=== PATIENT | female | born 1985 | race Caucasian/White ===

== ENCOUNTER 2017-05-15 18:24 | Emergency (ER) | payer BC ==
[~2017-05-15 18:24] MED LIST: VICODIN 5/1 TAB 5/50 PO
== END 2017-05-15 18:54 | disposition home or self-care (01) ==
LOC: SED 18:24
DX: S29.012A Strain of muscle and tendon of back wall of thorax, initial encounter (principal); F17.210 Nicotine dependence, cigarettes, uncomplicated; X50.9XXA Other and unspecified overexertion or strenuous movements or postures, initial encounter
CPT/HCPCS: 99283